=== PATIENT | female | born 1985 | race Caucasian/White ===

== ENCOUNTER 2017-03-06 10:07 | Outpatient (CLI) | payer OTHER ==
[2017-03-06] MEDS ORDERED: DILT180C PO (10:18)
== END 2017-03-06 12:23 | disposition home or self-care (01) ==
DX: Z01.812 Encounter for preprocedural laboratory examination (principal); Z11.2 Encounter for screening for other bacterial diseases; K42.9 Umbilical hernia without obstruction or gangrene

== ENCOUNTER 2017-03-13 06:00 | Day surgery (SDC) | payer OTHER ==
[~2017-03-13] VITALS: Ht 170.2 cm; Wt 80.0 kg
[~2017-03-13 06:00] MED LIST: DILT180C PO
[2017-03-13 07:00] VITALS: BP 101/69
[2017-03-13] MEDS ORDERED: ceFAZolin 1 GM/NS 50 ML IVPB IV ONE ×2 (07:00)
[2017-03-13] MEDS ORDERED: BUP/EPI 0.5% 1:200,000 (MARCAINE) 10ML VIAL IJ ONE (07:16)
[2017-03-13] MEDS ORDERED: SCOPOLAMINE 1.5 MG (TRANSDERM-SCOP) PATCH ONE (07:21)
[2017-03-13] MEDS ORDERED: ONDANSETRON 4 MG/2 ML (SDV) Z0FRAN ONE ×2 (07:22→08:01)
[2017-03-13] MEDS ORDERED: FAMOTIDINE 20MG/2ML IV (PEPCID) ONE (07:22)
[2017-03-13] MEDS: LACTATED RINGERS 1,000 ML IV PRN ×2 (07:32→10:19)
--- NOTE | 2017-03-13 07:58 | Progress Note-Pre Operative ---
Pre-Operative Progress Note H&P Reviewed The H&P was reviewed, patient examined and no changes noted. Date Seen by Provider: Mar 13, 2017 Time Seen by Provider: 07:40 Date H&P Reviewed: Mar 13, 2017 Time H&P Reviewed: 07:45 Pre-Operative Diagnosis: Symptomatic Umbilical Hernia NATALIO ASHBY APRN Mar 13, 2017 7:58 am
[2017-03-13] MEDS ORDERED: HYDROcodone/APAP 5 MG/325 MG (LORTAB) TAB PO ONE (08:00)
[2017-03-13] MEDS ORDERED: morphine INJ 10 MG/ML 1ML (SYR OR VIAL) IVP PRN ×2 (08:00→10:45)
[2017-03-13] MEDS ORDERED: ACETAMINOPHEN 325 MG TABLET/CAPLET (TYLENOL) PO PRN (08:00)
[2017-03-13] MEDS ORDERED: ONDANSETRON 4 MG/2 ML (SDV) Z0FRAN IVP PRN ×2 (08:00→10:45)
[2017-03-13] MEDS ORDERED: LIDOCAINE PF 2% 5 ML (XYLOCAINE) VIAL ONE (08:01)
[2017-03-13] MEDS ORDERED: MIDAZOLAM 2 MG/2 ML (VERSED) VIAL ONE (08:01)
[2017-03-13] MEDS ORDERED: fentaNYL INJECTION 100 MCG/2 ML AMP ONE (08:01)
[2017-03-13] MEDS ORDERED: ROCURONIUM 50 MG/5 ML (ZEMURON) VIAL IV ONE (08:01)
[2017-03-13] MEDS ORDERED: LACTATED RINGERS 1,000 ML IV ONE ×2 (08:01→10:06)
[2017-03-13] MEDS ORDERED: proPOfol 200 MG/20 ML (DIPRIVAN) VIAL IV ONE (08:01)
[2017-03-13] MEDS ORDERED: SEVOFLURANE (ULTANE) 15 ML INHAL SOLN ONE ×4 (10:06→10:21)
--- NOTE | 2017-03-13 10:14 | Progress Note-Post Operative ---
Post-Operative Progess Note Surgeon (s)/Director Intelligence Analysis Programs (s) Surgeon DANIELLE SWANN MD Director Intelligence Analysis Programs: isaac asif ONCOLOGY TECHNICIAN Pre-Operative Diagnosis Symptomatic Umbilical Incisional Hernia Post-Operative Diagnosis same(2cm) Procedure & Operative Findings Date of Procedure 03/13/17 Procedure Performed/Findings open umbilical incisional hernia repair with mesh. Anesthesia Type GET Estimated Blood Loss Estimated blood loss (mL): minimal Specimens/Packing Specimens Removed none DANIELLE SWANN MD Mar 13, 2017 10:14 am
--- OUTSIDE RECORDS SUMMARY | 2017-03-13 10:18 | XMS REPORT | Continuity of Care Document ---
Author Author [facility] Organization [facility] Address Unknown Phone Unavailable Care Team Providers Care Electric Blanket Packer Name Role Phone Unverified, Unverified PCP Unavailable Source Comments Some departments are not documenting in the electronic medical record. If you do not see the information that you expected, contact Release of Information in the Health Information Management department at [phone] for further assistance in locating additional records.[facility] Active Allergies and Adverse Reactions No Known Allergies Current Medications Prescription Sig. Disp. Refills Start End Date Status Date ERGOCALCIFEROL (VITAMIN Take by mouth. Active D2) (VITAMIN D PO) fluticasone (FLONASE) 50 Apply 2 Sprays to each Active mcg/actuation nasal spray nostril as directed daily. Shake bottle gently before using. diltiazem CD (CARDIZEM 1 Cap daily. 90 Cap 3 12/20/19 Active CD) 120 mg capsule 17 Active Problems Problem Noted Date Family history of early CAD 10/01/2011 Overview: 2 maternal uncle in 40's due to heart disease Family history of pulmonary hypertension 10/01/2011 Overview: Mother - Idiopathic pulmonary hypertension with PAP in 80's Heart palpitations 09/30/2011 Overview: 1. 10/01/11: Looping Event Monitor: 6 transmissions: The patient's looping event monitor demonstrated underlying sinus rhythm with at times aberrant conduction. The patient's symptoms of fluttering and skipped beat correlated with isolated PAC and isolated PVC. Heart rate varied between 68-117 beats per minute during the recording. Chest tightness 09/30/2011 Overview: 1. 10/01/11: Stress echo: Rest Echo: EF 60%. No significant valvular stenosis or regurgitation. PAP 23. Exercised for 12 min, achieved 99% MPHR. C/o chest tightness (2-6/10). Good exercise tolerance. Stress ECG: No diagnostic ST segment changes suggestive of ischemia. No arrhythmia. Stress echo: Negative for ischemia. 2. 12/16/2013: Echo:EF~ 60%. No significant valvular stenosis or regurgitation. PAP 17 mmHg 3. 06/20/14: Treadmill: Negative for ischemia. No ectopy at rest and during exercise. Family history of coronary artery disease 09/30/2011 Most Recent Encounters Date Type Specialty Providers Description 02/04/2017 Telephone Cardiology Luisa Stewart RN Cardiac Clearance - clearance letter faxed to Dr. Bond at [phone] 01/03/2017 Telephone Cardiology Joslyn Mackay RN Results - Echo 12/27/16 12/27/2016 [facility] Wolf Thakur MD Encounter 12/19/2016 Office Visit Cardiology Wolf Thakur MD Cardiac Eval - Palpitations Social History Tobacco Use Types Packs/Day Years Used Date Never Smoker Smokeless Tobacco: Never Used Alcohol Use Drinks/Week oz/Week Comments No Last Filed Vital Signs Vital Sign Reading Time Taken Blood Pressure 116/70 12/27/2016 3:45 PM CDT Pulse 72 12/19/2016 9:37 AM CDT Temperature - - Respiratory Rate - - Height 1.727 m (5' 8") 12/27/2016 3:45 PM CDT Weight 81.647 kg (180 lb) 12/27/2016 3:45 PM CDT Body Mass Index 27.38 12/27/2016 3:45 PM CDT Oxygen Saturation - - Plan of Care Health Maintenance Due Date Last Done Comments Physical (Comprehensive) 1991 Exam Pertussis Vaccine 1995 Tetanus Vaccine 2001 Cervical Cancer Screening 2005 Influenza Vaccine 05/16/2017 Results from Last 3 Months * 2-D + DOPPLER ECHOCARDIOGRAM (12/27/2016 3:45 PM) Component Value Range BSA 1.98 m2 ECHO EF 60 % Referring Provider LVIDD 4.1 3.9-5.3 cm LVIDS 2.4 cm IVS 0.6 0.6-0.9 cm PW 0.6 0.6-0.9 cm FS 41.46 28-44 % EF 70.48 % LA size 3.7 2.7-3.8 cm LA volume 42.1 22-52 mL Left Atrium Index 21.26 10-32 Right Ventricular Basal 2.5 cm (2.4-4.2) Diameter Right Atrial Area 12.4 cm2 (<=18) Right Ventricular Mid 2.3 cm (2.0-3.5) Diameter Right Ventricular Long 6.9 cm (5.6-8.6) Diameter Sinus 2.8 2.1-3.5 cm AV peak velocity 1.0 m/s TV rest pulmonary artery 18 mmHg pressure E/A ratio 1.84 TDI e' 0.193 m/s E/E' ratio 4.20 MV Peak E Primo PW 0.810 m/s MV Peak A Primo 0.440 m/s Narrative 1. No regional wall motion abnormalities are seen. Overall LV systolic function appears normal. The estimated left ventricular ejection fraction is 60%.No significant change in left ventricular systolic function is noted compared to the previous echo-doppler study performed on 12/16/13. 2. Normal left ventricular diastolic function. 3. Right ventricular contractility appears normal. 4. Normal chamber dimensions. 5. Cardiac valve structures are unremarkable. There is no evidence of significant valvular regurgitation or stenosis by doppler exam. 6. No pericardial effusion is seen. 7. The estimated Peak Systolic PA Pressure=: 18 mmHg.
[2017-03-13] MEDS ORDERED: HYDR-3816 PO (10:19)
--- NOTE | 2017-03-13 10:23 | Discharge Inst-Surgical ---
D/C Lap Instructions-HUE New, Converted, or Re-Newed RX: RX on Chart Follow Up Appt in 2 weeks Activity as tolerated No driving for 24 hours No driving while on pain medications Incentive Spirometry use every 2 hours while awake Regular Diet Symptoms to Report: Fever over 101 degree F, Nausea/Vomiting Infection Signs and Symptoms to report: Increased redness, Foul odor of wound, Increased drainage Bathing instructions: May shower Operative Area Clean/Dry; Keep incision clean/dry If any problems/questions: Contact your physician or go to Emergency Room DANIELLE SWANN MD Mar 13, 2017 10:23 am
[2017-03-13] MEDS ORDERED: DEXAMETHASONE PF 10 MG/ML (DECADRON) VIAL ONE (10:35)
[2017-03-13] MEDS: MEPERIDINE (DEMEROL) INJ 50 MG/ML IVP PRN ×2 (10:35→10:50)
[2017-03-13] MEDS ORDERED: PROMETHAZINE INJ 25 MG/ML (PHENERGAN) AMP IVP PRN (10:45)
[2017-03-13 11:25] VITALS: BP 111/68
[2017-03-13 11:55] VITALS: BP 107/69
[2017-03-13] MEDS ORDERED: PANT40TA3 PO (12:00)
[2017-03-13 12:25] VITALS: BP 111/69
[2017-03-13] MEDS ORDERED: HYDROcodone/APAP 5 MG/325 MG (LORTAB) TAB ONE (12:27)
--- NOTE | 2017-03-16 23:51 | OPERATIVE REPORT ---
PROCEDURE PHYSICIAN: DANIELLE BOND DATE OF PROCEDURE: 03/13/2017 ATTENDING PRIMARY CARE PHYSICIAN: Dr. Womack. PREOPERATIVE DIAGNOSIS: Ventral abdominal incisional hernia. POSTOPERATIVE DIAGNOSIS: Ventral abdominal incisional hernia. PROCEDURE: Open ventral abdominal incisional hernia repair with mesh. SURGEON: Dr. Bond. FARM IMPLEMENT ENGINE MECHANIC: Glen Whitlock APRN. ANESTHESIA: General endotracheal. ESTIMATED BLOOD LOSS: Minimal. FINDINGS: Small symptomatic incisional hernia from previous laparoscopic surgery. Dimensions of the defect were approximately 2 x 2 centimeters. DISPOSITION: The patient tolerated the procedure well. BRIEF HISTORY: Ms. Augustina Stoddard is a 31-year-old female now with pain around the umbilicus. She reports that she noticed intermittent pain for the past several months as well as a palpable bulge. She reports in the past month this has become more severe. Upon examination, she had undergone a laparoscopic tubal ligation in 2013. Upon examination, she was found to have a periumbilical ventral abdominal incisional hernia which was painful to palpation. PROCEDURE: The patient was brought to the operating room, laid supine on the table. After adequate IV pain and sedative medications and general endotracheal intubation the abdomen was prepped and draped in standard surgical fashion. 0.5% Marcaine with epinephrine was used to anesthetize the overlying skin in the supraumbilical region. A crescent shaped skin incision was made using a 15 blade. The subcutaneous tissue was then dissected down using electrocautery. The hernia sac was identified and small. The defect was approximately 2 x 2 centimeters in size. The hernia sac was then opened using Metzenbaum scissors with only omentum within the hernia sac. The hernia sac was then excised. The defect was then closed without tension using a 4.2 cm coated polypropylene mesh. Concentric transfacial 0 Prolene sutures were placed around the mesh to the fascia. Good hemostasis was observed. The subcutaneous tissue was then reapproximated using 3-0 Vicryl interrupted sutures. Skin was closed using 4-0 Monocryl in a running subcuticular suture. Wound was then cleaned and covered with Dermabond. The umbilicus was then filled with tonsil sponges, followed by 4 x 4 gauze, followed by large OpSite, followed by an abdominal binder. The patient tolerated the procedure well. We will start IV and oral pain medication as well as a clear liquid diet. Once she is tolerating clears, has good pain control with oral pain medication and is ambulating well, we will discharge her home. She will be instructed to do no heavy lifting or exertion for the next 6 weeks. Job ID: [id number] Dictated Date: 03/15/2017 15:58:29 Jawbone Puller Date: 03/16/2017 23:45:31 / [email or web address]
== END 2017-03-13 13:47 | disposition home or self-care (01) ==
LOC: SDC 06:00
PROVIDERS: ATTEND Surgery
DX: K43.2 Incisional hernia without obstruction or gangrene (principal); I49.9 Cardiac arrhythmia, unspecified; Z79.899 Other long term (current) drug therapy
CPT/HCPCS: 84703; 94664

== ENCOUNTER → 2017-05-29 | Outpatient (CLI) | payer OTHER ==
[~2017-05-29] MED LIST changes: +CATHETER FLUSH 10 ML SYR IV PRN; +HYDR-3816 PO; +PANT40TA3 PO
--- NOTE | 2017-05-29 13:06 | Diagnostic Imaging Report ---
EXAMINATION: HIDA with EF measurements Indication: Abdominal pain TECHNIQUE: After the intravenous administration of 5.1 mCi of Tc 99m Choletec, imaging over the abdomen was obtained. This was followed by administration of Ensure orally to stimulate intrinsic CCK secretion, followed by continued imaging with ejection fraction measured. FINDINGS: There is homogeneous uptake in the liver with prompt bile duct and gallbladder filling seen. Bowel activity is seen at 20 minutes. Based on further imaging and gallbladder area of interest activity measurements after the administration of Ensure, the gallbladder ejection fraction is estimated at 20%. IMPRESSION: 1. Normal hepatobiliary uptake and Gallbladder filling. 2. Biliary dyskinesia. Reduced gallbladder ejection fraction. Dictated by: Dictated on workstation # [id number]
== END ==
LOC: CARD 10:08
PROVIDERS: ATTEND Surgery
DX: K82.8 Other specified diseases of gallbladder (principal)
CPT/HCPCS: 78227

== ENCOUNTER 2017-08-28 05:41 | Outpatient (CLI) | payer OTHER ==
[~2017-08-28] VITALS: Ht 170.2 cm; Wt 79.8 kg
[~2017-08-28 05:41] MED LIST changes: -CATHETER FLUSH 10 ML SYR IV PRN
[2017-08-28] MEDS ORDERED: DILT120T11 PO (15:39)
== END 2017-08-28 16:40 ==
LOC: PREOP 05:41
PROVIDERS: ATTEND Surgery
DX: Z01.818 Encounter for other preprocedural examination (principal); K82.8 Other specified diseases of gallbladder

== ENCOUNTER 2017-09-04 08:04 | Day surgery (SDC) | payer OTHER ==
[~2017-09-04] VITALS: Ht 170.2 cm; Wt 79.8 kg
[~2017-09-04 08:04] MED LIST changes: +DILT120T11 PO
[2017-09-04 08:10] VITALS: BP 108/69
[2017-09-04] MEDS ORDERED: LIDOCAINE PF 2% 5 ML (XYLOCAINE) VIAL ONE (08:20)
[2017-09-04] MEDS ORDERED: fentaNYL INJECTION 100 MCG/2 ML AMP ONE ×2 (08:20→10:57)
[2017-09-04] MEDS ORDERED: SEVOFLURANE (ULTANE) 15 ML INHAL SOLN ONE ×2 (08:20→11:05)
[2017-09-04] MEDS ORDERED: ROCURONIUM 50 MG/5 ML (ZEMURON) VIAL IV ONE (08:20)
[2017-09-04] MEDS ORDERED: LACTATED RINGERS 1,000 ML IV ONE (08:20)
[2017-09-04] MEDS ORDERED: proPOfol 200 MG/20 ML (DIPRIVAN) VIAL IV ONE (08:20)
[2017-09-04] MEDS ORDERED: MIDAZOLAM 2 MG/2 ML (VERSED) VIAL ONE (08:20)
[2017-09-04] MEDS ORDERED: DEXAMETHASONE 10 MG/ML (DECADRON) 1 ML VIAL ONE (08:21)
[2017-09-04] MEDS ORDERED: ONDANSETRON 4 MG/2 ML (SDV) Z0FRAN ONE (08:21)
--- NOTE | 2017-09-04 08:27 | Progress Note-Pre Operative ---
Pre-Operative Progress Note H&P Reviewed The H&P was reviewed, patient examined and no changes noted. Date Seen by Provider: Sep 04, 2017 Time Seen by Provider: 08:25 Date H&P Reviewed: Sep 04, 2017 Time H&P Reviewed: 08:25 Pre-Operative Diagnosis: symptomatic biliary dyskinesia DANIELLE SWANN MD Sep 04, 2017 8:27 am
[2017-09-04] MEDS ORDERED: ACETAMINOPHEN 325 MG TABLET/CAPLET (TYLENOL) PO PRN (08:30)
[2017-09-04] MEDS ORDERED: ONDANSETRON 4 MG/2 ML (SDV) Z0FRAN IVP PRN ×2 (08:30→11:15)
[2017-09-04] MEDS ORDERED: morphine INJ 10 MG/ML 1ML (SYR OR VIAL) IVP PRN (08:30)
[2017-09-04] MEDS ORDERED: HYDROcodone/APAP 5 MG/325 MG (LORTAB) TAB PO ONE (08:30)
[2017-09-04] MEDS: LACTATED RINGERS 1,000 ML IV PRN ×2 (08:45→10:19)
[2017-09-04] MEDS ORDERED: LACTATED RINGERS 1,000 ML IV PRN (08:57)
[2017-09-04] MEDS ORDERED: ceFAZolin 1 GM/NS 50 ML IVPB IV ONE ×2 (09:00)
[2017-09-04] MEDS ORDERED: ceFAZolin INJECTION 1,000 MG in NS (IVPB) 50 ML IV ONE (09:00)
[2017-09-04 09:04] LABS: BASOPHILS % (AUTO) 1 % (0-10); EOSINOPHILS # (AUTO) 0.1 10^3/uL (0.0-0.3); EOSINOPHILS % (AUTO) 2 % (0-10); LYMPHOCYTES # (AUTO) 1.6 X 10^3 (1.0-4.0); LYMPHOCYTES % (AUTO) 37 % (12-44); MEAN CORPUSCULAR HEMOGLOBIN 28 PG (25-34); MEAN CORPUSCULAR HGB CONC 34 G/DL (32-36); MEAN CORPUSCULAR VOLUME 81 FL (80-99); MEAN PLATELET VOLUME 10.7 FL (7.4-10.4); MONOCYTES # (AUTO) 0.4 X 10^3 (0.0-1.0); MONOCYTES % (AUTO) 9 % (0-12); NEUTROPHILS # (AUTO) 2.2 X 10^3 (1.8-7.8); NEUTROPHILS % (AUTO) 51 % (42-75); PLATELET COUNT 207 10^3/uL (130-400); RED BLOOD COUNT 4.62 10^6/uL (4.35-5.85); RED CELL DISTRIBUTION WIDTH 12.6 % (10.0-14.5); WHITE BLOOD COUNT 4.3 10^3/uL (4.3-11.0)
[2017-09-04] MEDS ORDERED: BUP/EPI 0.5% 1:200,000 (MARCAINE) 10ML VIAL IJ ONE (09:10)
[2017-09-04] MEDS ORDERED: FAMOTIDINE 20MG/2ML IV (PEPCID) IV ONE (09:30)
[2017-09-04] MEDS ORDERED: ONDANSETRON 4 MG/2 ML (SDV) Z0FRAN IV ONE (09:30)
[2017-09-04] MEDS ORDERED: SCOPOLAMINE 1.5 MG (TRANSDERM-SCOP) PATCH TOP ONE (09:30)
[2017-09-04] MEDS ORDERED: NEOSTIGMINE (BLOXIVERZ ) 1 MG/1ML 10 ML VIAL ONE (10:54)
[2017-09-04] MEDS ORDERED: GLYCOPYRROLATE 0.2 MG/ML (ROBINUL) 2 ML VIAL ONE (10:54)
--- NOTE | 2017-09-04 11:02 | Progress Note-Post Operative ---
Post-Operative Progess Note Surgeon (s)/Optician Apprentice Dispensing (s) Surgeon DANIELLE SWANN MD Optician Apprentice Dispensing: isaac asif CHEST PAINTING LEADER Pre-Operative Diagnosis symptomatic biliary dyskinesia Post-Operative Diagnosis same Procedure & Operative Findings Date of Procedure 09/04/17 Procedure Performed/Findings laparoscopic cholecystectomy. Anesthesia Type GET Estimated Blood Loss Estimated blood loss (mL): minimal Specimens/Packing Specimens Removed gallbladder DANIELLE SWANN MD Sep 04, 2017 11:02 am
[2017-09-04] MEDS ORDERED: HYDR-3816 PO (11:05)
--- NOTE | 2017-09-04 11:08 | Discharge Inst-Surgical ---
D/C Lap Instructions-HUE New, Converted, or Re-Newed RX: RX on Chart Follow Up Appt in 2 weeks Activity as tolerated No driving for 24 hours No driving while on pain medications Incentive Spirometry use every 2 hours while awake Regular Diet Symptoms to Report: Fever over 101 degree F, Nausea/Vomiting Infection Signs and Symptoms to report: Increased redness, Foul odor of wound, Increased drainage Bathing instructions: May shower Operative Area Clean/Dry; Keep incision clean/dry If any problems/questions: Contact your physician or go to Emergency Room DANIELLE SWANN MD Sep 04, 2017 11:08 am
[2017-09-04] MEDS: morphine INJ 10 MG/ML 1ML (SYR OR VIAL) IVP PRN ×2 (11:25→11:35)
[2017-09-04] MEDS: fentaNYL INJECTION 100 MCG/2 ML AMP IVP PRN ×2 (11:50→12:00)
[2017-09-04 12:35] VITALS: BP 121/74
[2017-09-04 13:05] VITALS: BP 114/70
[2017-09-04 13:35] VITALS: BP 116/76
[2017-09-04] MEDS ORDERED: ONDANSETRON 4 MG (ZOFRAN) ORAL DISSOLVE TAB ONE (14:44)
[2017-09-04] MEDS ORDERED: ONDANSETRON 4 MG (ZOFRAN) ORAL DISSOLVE TAB PO ONE (14:45)
--- NOTE | 2017-09-04 19:49 | OPERATIVE REPORT ---
DATE OF SERVICE: 09/04/2017 ATTENDING PRIMARY CARE PHYSICIAN: Luisa Womack MD PREOPERATIVE DIAGNOSIS: Symptomatic biliary dyskinesia. POSTOPERATIVE DIAGNOSIS: Symptomatic biliary dyskinesia. PROCEDURE: Laparoscopic cholecystectomy. SURGEON: Danielle Swann MD. GEOGRAPHIC ANALYST: Glen Whitlock APRN ANESTHESIA: General endotracheal. ESTIMATED BLOOD LOSS: Minimal. FINDINGS: Intact previous hernia repair, mild gallbladder dilatation and inflammation. DISPOSITION: The patient tolerated the procedure well. INDICATION FOR PROCEDURE: The patient is a 32-year-old female known to us. She had pain in the umbilical region and found to have an incisional hernia approximately 2 cm in size. This was the site of a previous laparoscopic port incision. She underwent open repair of the incisional hernia on 03/13/2017. She has done well from this standpoint; however, has had a differing issue including pain in the flank as well as right upper abdominal quadrant usually after eating meals as well as associated nausea; however, no vomiting. A HIDA scan was performed, which did show a low ejection fraction of 20% and reproduction of symptoms consistent with a biliary dyskinesia. DESCRIPTION OF PROCEDURE: The patient was brought to the operating room, laid supine on the table. After adequate IV pain and sedative medications and general endotracheal intubation, the abdomen was prepped and draped in standard surgical fashion. A 0.5% Marcaine with epinephrine was then used to anesthetize the overlying skin in the left upper abdominal quadrant and a small transverse skin incision made using a 15 blade. An 0 silk suture was applied to the medial aspect of the incision for retraction and a Veress needle inserted with a low opening pressure of 0 mmHg and the abdomen was then insufflated to 15 mmHg pressure. The Veress needle I removed and a 5 mm Xcel trocar placed followed by a 5 mm using 45 degree angle laparoscope visualizing the peritoneal cavity. A full quadrant abdominal exploration was performed. There were omental adhesions to the previous recent incisional hernia repair with an intact mesh and no recurrent hernia. There was mild gallbladder wall dilatation as well as mild inflammation. No other lesions identified. Under direct visualization, we then proceeded to place a supraumbilical 10 mm port after the skin and peritoneum were anesthetized using 0.5% Marcaine with epinephrine and a transverse skin incision made using a 15 blade. In a similar manner, a right upper abdominal quadrant 5 mm port was placed. The patient was then placed in reverse Trendelenburg position as well as planed right side up, left side down. The fundus of the gallbladder was then retracted anteriorly and superiorly. The hepatoduodenal ligament was then opened using electrocautery and hook instrument as well as blunt dissection. The entire critical view of safety was identified including the triangle of Calot as well as the cystic duct and artery as the only two structures going into the gallbladder as well as the cystic plate behind the proximal gallbladder identified. A timeout was then taken and the cystic duct and artery were then clipped proximally and distally and cut with EndoShears. The gallbladder was then dissected off the liver bed using electrocautery on the hook instrument with visualization, good hemostasis as well as no leaking ducts of Luschka. The gallbladder was removed through the 10 mm port site using an EndoCatch bag. The 10 mm port site fascia and peritoneum were then closed under direct visualization using Antione-Manny device and 0 Vicryl suture. The abdomen was desufflated and the remaining ports removed. All skin incisions were closed using 4-0 Monocryl running subcuticular sutures. Wounds were then cleaned and covered with Dermabond. The patient tolerated the procedure well. We will start IV and oral pain medications as well as a clear liquid diet. Once she is tolerating clears and has good pain control with oral pain medications and is ambulating well, we will discharge her home. Job ID: [id number] DocumentID: [id number] Dictated Date: 09/04/2017 11:17:14 Blue Print Control Clerk Date: 09/04/2017 19:48:28 Dictated By: DANIELLE SWANN MD
== END 2017-09-04 14:50 | disposition home or self-care (01) ==
LOC: SDC 08:04
PROVIDERS: ATTEND Surgery
DX: K81.1 Chronic cholecystitis (principal); I49.9 Cardiac arrhythmia, unspecified; Z79.899 Other long term (current) drug therapy
CPT/HCPCS: 36415; 84703; 85025; 87081; 94664

== ENCOUNTER 2019-06-17 10:57 | Emergency (ER) | payer OTHER ==
[~2019-06-17] VITALS: Ht 172.2 cm; Wt 81.8 kg
[~2019-06-17 10:57] MED LIST changes: +HYDR-34 PO; -HYDR-3816 PO
--- NOTE | 2019-06-17 11:29 | ED Chest Pain ---
General Stated Complaint: CHEST PAIN Source: patient Exam Limitations: no limitations History of Present Illness Date Seen by Provider: Jun 17, 2019 Time Seen by Provider: 11:26 Initial Comments To ER with central chest pain that began this morning about 8 AM while sitting at her desk working on her computer. She had some exertional dyspnea while walking in to ER but otherwise no shortness of breath. No cough no fever no chills. The chest pain has since moved to the left sternal border, tender to palpation. She's also had some discomfort in the left arm tingling in the left hand. She is a nonsmoker nondiabetic and has normal cholesterol. She has a strong family history of heart disease. She is on diltiazem for "heart gets out of rhythm", follows with prosthetic aide Dr. Thakur at the [facility]. States that she ran out of her diltiazem last week and has been taking leftover Cartia name brand, historically when she took Cartia name brand she "didn't tolerate it very well"but did not have symptoms similar to what she is having today. Timing/Duration: 4-6 hours, changing over time Severity/Quality: moderate Location: central Radiation: no radiation ASA po INCLINED RAILWAY OPERATOR: No NTG SL INCLINED RAILWAY OPERATOR: No Allergies and Home Medications Allergies Coded Allergies: No Known Drug Allergies (Unverified , 03/06/17) Home Medications Diltiazem HCl 120 Mg Capsule.er, 120 MG PO DAILY Prescribed by: ANDRE ROBLES on 06/17/19 1406 Hydrocodone Bit/Acetaminophen 1 Each Tablet, 1-2 EACH PO Q4H Prescribed by: DANIELLE SWANN on 09/04/17 1105 Patient Home Medication List Home Medication List Reviewed: Yes Review of Systems Review of Systems Constitutional: see HPI EENTM: No Symptoms Reported Respiratory: No Symptoms Reported Cardiovascular: See HPI, Chest Pain Gastrointestinal: See HPI Genitourinary: No Symptoms Reported Musculoskeletal: no symptoms reported Skin: no symptoms reported Psychiatric/Neurological: No Symptoms Reported Endocrine: No Symptoms Reported Hematologic/Lymphatic: No Symptoms Reported Past Elfdtxr-Reydem-Leliot Hx Patient Social History Recent Hopitalizations: No Immunizations Up To Date Tetanus Booster (TDap): Unknown PED Vaccines UTD: No Seasonal Allergies Seasonal Allergies: Yes Past Medical History Tonsillectomy, Tubal Ligation Irregular Heartbeat Headaches /Migraines Reproductive Disorders: No Female Reproductive Disorders: Ovarian Cyst WRAPPING CLERK History: Tubal Ligation Sexually Transmitted Disease: No HIV/AIDS: No Gall Bladder Disease Chronic Back Pain Loss of Vision: Bilateral Hearing Impairment: Denies Adverse Reaction/Blood Tranf: No (N/A) Physical Exam Vital Signs Vital Signs - First Documented 06/17/19 10:59 Temp 36.7 Pulse 74 Resp 18 B/P (MAP) 107/72 (84) Pulse Ox 98 O2 Delivery Room Air Capillary Refill : Height, Weight, BMI Height: 5'7.00" Weight: 176lbs. 0.0oz. 79.873013dk; 27.6 BMI Method: General Appearance: No Apparent Distress, WD/WN Neck: Full Range of Motion, Normal Inspection Respiratory: No Accessory Muscle Use, No Respiratory Distress, Other (left chest wall tenderness palpation left sternal border fourth and fifth costochondral junctions) Cardiovascular: Regular Rate, Rhythm, Normal Peripheral Pulses Gastrointestinal: Non Tender, Soft Extremity: Normal Capillary Refill, Normal Inspection Neurologic/Psychiatric: Alert, Oriented x3 Skin: Normal Color, Warm/Dry Progress/Results/Core Measures Results/Orders Lab Results Laboratory Tests Test 06/17/19 11:21 Range/Units White Blood Count 6.5 4.3-11.0 10^3/uL Red Blood Count 4.73 4.35-5.85 10^6/uL Hemoglobin 14.1 11.5-16.0 G/DL Hematocrit 41 35-52 % Mean Corpuscular Volume 88 80-99 FL Mean Corpuscular Hemoglobin 30 25-34 PG Mean Corpuscular Hemoglobin Concent 34 32-36 G/DL Red Cell Distribution Width 12.1 10.0-14.5 % Platelet Count 204 130-400 10^3/uL Mean Platelet Volume 9.9 7.4-10.4 FL Neutrophils (%) (Auto) 60 42-75 % Lymphocytes (%) (Auto) 31 12-44 % Monocytes (%) (Auto) 8 0-12 % Eosinophils (%) (Auto) 1 0-10 % Basophils (%) (Auto) 1 0-10 % Neutrophils # (Auto) 3.9 1.8-7.8 X 10^3 Lymphocytes # (Auto) 2.0 1.0-4.0 X 10^3 Monocytes # (Auto) 0.5 0.0-1.0 X 10^3 Eosinophils # (Auto) 0.1 0.0-0.3 10^3/uL Basophils # (Auto) 0.0 0.0-0.1 10^3/uL D-Dimer 0.51 H 0.00-0.49 UG/ML Sodium Level 140 135-145 MMOL/L Potassium Level 4.1 3.6-5.0 MMOL/L Chloride Level 105 98-107 MMOL/L Carbon Dioxide Level 26 21-32 MMOL/L Anion Gap 9 5-14 MMOL/L Blood Urea Nitrogen 8 7-18 MG/DL Creatinine 0.79 0.60-1.30 MG/DL Estimat Glomerular Filtration Rate > 60 BUN/Creatinine Ratio 10 Glucose Level 72 70-105 MG/DL Calcium Level 8.9 8.5-10.1 MG/DL Corrected Calcium 8.7 8.5-10.1 MG/DL Total Bilirubin 0.6 0.1-1.0 MG/DL Aspartate Amino Transf (AST/SGOT) 18 5-34 U/L Alanine Aminotransferase (ALT/SGPT) 20 0-55 U/L Alkaline Phosphatase 31 L 40-136 U/L Troponin I < 0.028 <0.028 NG/ML Total Protein 7.2 6.4-8.2 GM/DL Albumin 4.2 3.2-4.5 GM/DL Serum Test, Qualitative NEGATIVE NEGATIVE My Orders Orders - ANDRE ROBLES APRN Cbc With Automated Diff (06/17/19 11:25) Comprehensive Metabolic Panel (06/17/19 11:25) Fibrin Degradation Products (06/17/19 11:25) Troponin I (06/17/19 11:25) Chest 1 View, Ap/Pa Only (06/17/19 11:25) Ed Iv/Invasive Line Start (06/17/19 11:25) Ketorolac Injection (Toradol Injection) (06/17/19 11:30) Aspirin Chewable Tablet (Baby Aspirin Ch (06/17/19 11:30) Hcg,Qualitative Serum (06/17/19 11:25) Ct Angio Chest W (06/17/19 11:58) Iohexol Injection (Omnipaque 350 Mg/Ml 1 (06/17/19 12:15) Received Contrast (Hold Metformin- Contr (06/17/19 12:15) Ondansetron Injection (Zofran Injectio (06/17/19 12:45) Medications Given in ED Current Medications Medications Dose Ordered Sig/Cadence Route Start Time Stop Time Status Last Admin Dose Admin Aspirin 324 mg ONCE ONCE PO 06/17/19 11:30 06/17/19 11:31 DC 06/17/19 11:44 324 MG Iohexol 125 ml ONCE ONCE IV 06/17/19 12:15 06/17/19 12:16 DC 06/17/19 12:46 125 ML Ketorolac Tromethamine 15 mg ONCE ONCE IVP 06/17/19 11:30 06/17/19 11:31 DC 06/17/19 11:47 15 MG Ondansetron HCl 4 mg ONCE ONCE IVP 06/17/19 12:45 06/17/19 12:46 DC 06/17/19 12:53 4 MG Vital Signs/I&O 06/17/19 10:59 Temp 36.7 Pulse 74 Resp 18 B/P (MAP) 107/72 (84) Pulse Ox 98 O2 Delivery Room Air Departure Communication (Admissions) Her d-dimer is barely elevated, her CT angios chest is normal revealing no evidence of embolism. Discussed with her the other possible causes of this including menstrual period or bruising, she states she does have a few bruises. This can certainly account for the elevated d-dimer. Impression Primary Impression: Chest wall pain Disposition: HOME, SELF-CARE Condition: Stable Departure-Patient Inst. Decision time for Depature: 14:05 Referrals: LINH RON MD (PCP/Family) Primary Care Physician Patient Instructions: Chest Pain (DC) Add. Discharge Instructions: 1. Return to ER for any concerns 2. Follow-up with your doctor next week 3. Scripts Diltiazem HCl (Diltiazem ER) 120 Mg Capsule.er 120 MG PO DAILY, #30 CAP Prov: ANDRE ROBLES APRN 06/17/19 Copy Copies To 1: LINH RON MD, PETER J APRN Jun 17, 2019 11:29
[2019-06-17] MEDS ORDERED: KETOROLAC 30 MG/ML VIAL IVP ONE (11:30)
[2019-06-17] MEDS ORDERED: ASPIRIN 81 MG CHEW (CHILDREN'S ASA) PO ONE (11:30)
[2019-06-17 11:34] LABS: BASOPHILS % (AUTO) 1 % (0-10); EOSINOPHILS # (AUTO) 0.1 10^3/uL (0.0-0.3); EOSINOPHILS % (AUTO) 1 % (0-10); HEMATOCRIT 41 % (35-52); HEMOGLOBIN 14.1 G/DL (11.5-16.0); LYMPHOCYTES % (AUTO) 31 % (12-44); MEAN CORPUSCULAR HEMOGLOBIN 30 PG (25-34); MEAN CORPUSCULAR HGB CONC 34 G/DL (32-36); MEAN CORPUSCULAR VOLUME 88 FL (80-99); MEAN PLATELET VOLUME 9.9 FL (7.4-10.4); MONOCYTES # (AUTO) 0.5 X 10^3 (0.0-1.0); MONOCYTES % (AUTO) 8 % (0-12); NEUTROPHILS # (AUTO) 3.9 X 10^3 (1.8-7.8); NEUTROPHILS % (AUTO) 60 % (42-75); PLATELET COUNT 204 10^3/uL (130-400); RED CELL DISTRIBUTION WIDTH 12.1 % (10.0-14.5); WHITE BLOOD COUNT 6.5 10^3/uL (4.3-11.0)
[2019-06-17 11:49] LABS: ALANINE AMINOTRANSFERASE 20 U/L (0-55); ALBUMIN 4.2 GM/DL (3.2-4.5); ALKALINE PHOSPHATASE 31 U/L (40-136); BILIRUBIN,TOTAL 0.6 MG/DL (0.1-1.0); BUN/CREATININE RATIO 10; CALCIUM 8.9 MG/DL (8.5-10.1); CARBON DIOXIDE 26 MMOL/L (21-32); CHLORIDE 105 MMOL/L (98-107); CREATININE SERUM 0.79 MG/DL (0.60-1.30); GFR ESTIMATED > 60; GLUCOSE 72 MG/DL (70-105); POTASSIUM 4.1 MMOL/L (3.6-5.0); SODIUM 140 MMOL/L (135-145); TOTAL PROTEIN 7.2 GM/DL (6.4-8.2)
[2019-06-17] MEDS ORDERED: ESCI10TA55 (11:59)
[2019-06-17] MEDS ORDERED: DILT120C53 (11:59)
[2019-06-17] MEDS ORDERED: ERGO50006 (11:59)
[2019-06-17] MEDS ORDERED: IOHEXOL 350 MG/ML 150 ML (OMNIPAQUE 350) VIAL IV ONE (12:15)
[2019-06-17] MEDS ORDERED: HOLD METFORMIN - RECEIVED CONTRAST 20 ML VIAL IV SCH (12:15)
--- NOTE | 2019-06-17 12:24 | Diagnostic Imaging Report ---
INDICATION: Chest pain with lightheadedness. COMPARISON: 07/08/2016 FINDINGS: The lungs are clear. Heart and vessels normal. There is no effusion or pneumothorax. IMPRESSION: Negative. Dictated by: Dictated on workstation # [id number]
[2019-06-17] MEDS ORDERED: ONDANSETRON 4 MG/2 ML (SDV) Z0FRAN IVP ONE (12:45)
--- NOTE | 2019-06-17 13:58 | Diagnostic Imaging Report ---
PROCEDURE: CT angiography of the chest with contrast. TECHNIQUE: Multiple contiguous axial images were obtained through the chest after uneventful bolus administration of intravenous contrast. 3D reconstructed CTA MIP acquisitions were also performed. Auto Exposure Controls were utilized during the CT exam to meet ALARA standards for radiation dose reduction. DATE: June 17, 2019. COMPARISON: Chest radiograph June 17, 2019. INDICATION: 34-year-old female, chest pain, left arm and hand numbness. FINDINGS: There is very mild atelectasis in the left lower lobe. There is no additional focal airspace consolidation. There is no pneumothorax. There is no pleural effusion. The central airways are patent. There is no pulmonary nodule. There is no lung mass. There is no identifiable pulmonary embolus. The main pulmonary artery is normal in caliber. The heart is not enlarged. There is no pericardial effusion. The thoracic aorta is normal in caliber. There is no evidence of aortic dissection. There is no abnormally enlarged mediastinal, hilar, or axillary lymph node which meets CT size criteria for adenopathy. The patient is status post cholecystectomy. Additional evaluation of the imaged portions of the upper abdomen is unremarkable. There is hardware in the right proximal humerus. There is no identified acute bony abnormality. IMPRESSION: CT CHEST. 1. No identifiable pulmonary embolus or other acute cardiopulmonary abnormality. Dictated by: Dictated on workstation # [id number]
[2019-06-17] MEDS ORDERED: DILT120C85 PO (14:06)
[2019-06-17 14:23] VITALS: BP 107/73
== END 2019-06-17 14:18 | disposition home or self-care (01) ==
LOC: EDUNIT# 10:57 → ER 10:58
DX: R07.89 Other chest pain (principal); G43.909 Migraine, unspecified, not intractable, without status migrainosus; Z90.89 Acquired absence of other organs; Z98.51 Tubal ligation status; Z82.49 Family history of ischemic heart disease and other diseases of the circulatory system
CPT/HCPCS: 36415; 71045; 71275; 80053; 84484; 84703; 85025; 85379; 93005

== ENCOUNTER → 2021-10-11 | Outpatient (CLI) | payer OTHER ==
[~2021-10-11] MED LIST changes: +DILT120C53; +DILT120C85 PO; -DILT180C PO; +DILT180C85 PO; +ERGO50006; +ESCI-2; -PANT40TA3 PO; +PANT40TA52 PO
== END ==
LOC: LABNPT 08:33
PROVIDERS: ATTEND Family Medicine
DX: Z20.822 Contact with and (suspected) exposure to COVID-19 (principal)
CPT/HCPCS: 87635

== ENCOUNTER 2021-10-13 20:17 | Outpatient (CLI) | payer OTHER | END 2021-10-14 07:20 | disposition home or self-care (01) | LOC: SLEEP 20:17 | PROVIDERS: ATTEND Nurse Practitioner Family | DX: G47.33 Obstructive sleep apnea (adult) (pediatric) (principal); G47.10 Hypersomnia, unspecified | CPT/HCPCS: 95810 ==

== ENCOUNTER → 2021-10-26 | Outpatient (CLI) | payer OTHER ==
[~2021-10-26] MED LIST changes: +NS IV 1000 ML 1,000 ML IV ONE
[2021-10-26 11:54] VITALS: BP 104/67
[2021-10-26 12:20] LABS: HEMATOCRIT 40 % (35-52); HEMOGLOBIN 12.8 g/dL (11.5-16.0); MEAN CORPUSCULAR HEMOGLOBIN 26 pg (25-34); MEAN CORPUSCULAR HGB CONC 32 g/dL (32-36); MEAN CORPUSCULAR VOLUME 82 fL (80-99); MEAN PLATELET VOLUME 9.9 fL (9.0-12.2); PLATELET COUNT 211 10^3/uL (130-400); WHITE BLOOD COUNT 5.6 10^3/uL (4.3-11.0)
[2021-10-26 12:40] LABS: ALBUMIN 3.8 GM/DL (3.2-4.5); BILIRUBIN,TOTAL 0.3 MG/DL (0.1-1.0); CALCIUM 8.7 MG/DL (8.5-10.1); CREATININE SERUM 0.83 MG/DL (0.60-1.30); POTASSIUM 3.3 MMOL/L (3.6-5.0); TOTAL PROTEIN 7.1 GM/DL (6.4-8.2)
== END ==
LOC: SDC 11:37
PROVIDERS: ATTEND Nurse Practitioner Family
DX: R11.2 Nausea with vomiting, unspecified (principal); R19.7 Diarrhea, unspecified
CPT/HCPCS: 36415; 80053; 82728; 85027; 96360

== ENCOUNTER 2021-11-07 10:22 | Outpatient (CLI) | payer OTHER ==
[~2021-11-07] VITALS: Ht 170.2 cm; Wt 90.9 kg
[~2021-11-07 10:22] MED LIST changes: -NS IV 1000 ML 1,000 ML IV ONE
[2021-11-07] MEDS ORDERED: D5 1/2 NS W/KCL 20 MEQ/L 1,000 ML IV SCH (10:45)
[2021-11-07 10:48] LABS: HEMATOCRIT 40 % (35-52); HEMOGLOBIN 12.7 g/dL (11.5-16.0); MEAN CORPUSCULAR HEMOGLOBIN 26 pg (25-34); MEAN CORPUSCULAR HGB CONC 32 g/dL (32-36); MEAN CORPUSCULAR VOLUME 82 fL (80-99); MEAN PLATELET VOLUME 9.3 fL (9.0-12.2); PLATELET COUNT 271 10^3/uL (130-400); WHITE BLOOD COUNT 5.8 10^3/uL (4.3-11.0)
[2021-11-07 11:02] LABS: BILIRUBIN,TOTAL 0.4 MG/DL (0.1-1.0); CALCIUM 8.9 MG/DL (8.5-10.1); CREATININE SERUM 0.82 MG/DL (0.60-1.30); POTASSIUM 3.6 MMOL/L (3.6-5.0)
[2021-11-07 13:30] VITALS: BP 105/66
== END 2021-11-07 13:30 | disposition home or self-care (01) ==
LOC: SDC 10:22
PROVIDERS: ATTEND Nurse Practitioner Family
DX: R19.7 Diarrhea, unspecified (principal); E87.6 Hypokalemia; R25.2 Cramp and spasm; E86.0 Dehydration
CPT/HCPCS: 36415; 80053; 85027; 96360; 96361